=== PATIENT | female | born 1970 | race Caucasian/White ===

== ENCOUNTER 2020-01-31 11:18 | Day surgery (SDC) | payer MEDICARE, MEDICAID ==
[~2020-01-31] VITALS: Ht 157.5 cm; Wt 64.1 kg
[~2020-01-31 11:18] MED LIST: BENZ2TAB6 PO; EPHEDRINE 50 MG/ML, 1ML IVPush PRN; ERGO500017 PO; FENTANYL PF 100 MCG/2ML IV PRN; HYDROmorphone 1 MG/ML, 1ML INJ IVPush PRN; LABETALOL 5MG/ML, 20ML IV PRN; LEVO88TA4 PO; ONDANSETRON 2MG/ML, 2ML IVPush PRN; PROMETHAZINE 25 MG/ML, 1ML IVPush PRN; RISP4TAB66 PO; TOPI25TA8 PO; TRAZ-175 PO; VENL37.511 PO; VENL75CA6 PO; hydrALAzine 20 MG/ML, 1ML IV PRN
[2020-01-31 11:41] VITALS: BP 90/59
[2020-01-31] MEDS ORDERED: CHLORHEXIDINE 15 ML UDC MM ONE (12:00)
[2020-01-31] MEDS ORDERED: ACETAMINOPHEN 500 MG TABLET PO ONE (12:00)
[2020-01-31] MEDS ORDERED: LACTATED RINGERS 1,000 ML IV SCH (12:00)
[2020-01-31] MEDS ORDERED: BUPIVACAINE/PF-EPI 0.5% 1:200K ONE (12:49)
[2020-01-31] MEDS ORDERED: LIDOCAINE/PF 1%, 30ML ONE (12:49)
[2020-01-31] MEDS ORDERED: BUPIVACAINE/PF 0.25% ONE (12:49)
[2020-01-31] MEDS ORDERED: MIDAZOLAM 1 MG/ML, 2ML ONE (12:58)
[2020-01-31] MEDS ORDERED: FENTANYL PF 100 MCG/2ML ONE ×2 (12:58→14:46)
[2020-01-31] MEDS ORDERED: CEFAZOLIN 1,000 MG ONE (13:06)
[2020-01-31] MEDS ORDERED: ONDANSETRON 2MG/ML, 2ML ONE (13:15)
[2020-01-31] MEDS ORDERED: KETOROLAC 30 MG/1 ML ONE (13:15)
[2020-01-31] MEDS ORDERED: PROPOFOL 10 MG/ML, 20ML ONE (13:15)
[2020-01-31] MEDS ORDERED: DEXAMETHASONE 4 MG/ML, 5ML ONE (13:15)
[2020-01-31] MEDS ORDERED: LIDOCAINE-MPF 2% ,5ML ONE (13:15)
[2020-01-31] MEDS ORDERED: OXYcodone 5 MG/5 ML ORAL.SOL UDC ONE ×2 (14:33→14:47)
[2020-01-31] MEDS: OXYcodone 5 MG/5 ML ORAL.SOL UDC PO PRN ×2 (14:34→14:48)
== END 2020-01-31 17:35 | disposition home or self-care (01) ==
LOC: OUT 11:18 → EDSTATUS 13:30 → OUT 17:35
PROVIDERS: ATTEND Orthopaedic Surgery Foot and Ankle Surgery
DX: M77.42 Metatarsalgia, left foot (principal); G57.82 Other specified mononeuropathies of left lower limb; M67.472 Ganglion, left ankle and foot; G47.30 Sleep apnea, unspecified; F32.9 Major depressive disorder, single episode, unspecified; E03.9 Hypothyroidism, unspecified; F17.210 Nicotine dependence, cigarettes, uncomplicated; Z79.899 Other long term (current) drug therapy; Z72.89 Other problems related to lifestyle; Z98.890 Other specified postprocedural states; Z20.828 Contact with and (suspected) exposure to other viral communicable diseases; Z82.49 Family history of ischemic heart disease and other diseases of the circulatory system; Z82.3 Family history of stroke
CPT/HCPCS: 28080; 28090; 28270; 28288; 28308; C1713; J0690; J1100; J1885; J2250; J2405; J2704; J3010; J7120; U0003